=== PATIENT | female | born 1980 | race Caucasian/White ===

== ENCOUNTER 2020-12-31 21:40 | Emergency (ER) | payer MEDICAID | END 2020-12-31 22:12 | LOC: JD.ED 21:40 | DX: Z53.21 Procedure and treatment not carried out due to patient leaving prior to being seen by health care provider (principal) ==

== ENCOUNTER 2021-01-23 06:49 | Inpatient (IN) | payer MEDICAID ==
[2021-01-23] MEDS ORDERED: Nalbuphine 10 MG/1 ML Vial IVPUSH PRN (07:42)
[2021-01-23] MEDS ORDERED: Ondansetron 4 MG/2 ML SDV IVPUSH PRN ×2 (07:42→19:44)
[2021-01-23] MEDS ORDERED: Oxytocin/Lactated Ringers 10 UNIT/1,000 ML BAG IV SCH ×2 (07:45→19:15)
--- NOTE | 2021-01-23 07:46 | PCM.LDHP ---
L&D History of Present Illness - General Date of Service: 01/23/21 Admit Problem/Dx: Patient Status Order with Admit Dx/Problem 01/23/21 07:43 Patient Status [ADT] Routine Admission Diagnosis/Problem Admission Diagnosis/Problem Advanced maternal age Source of Information: Patient History Limitations: Reports: No Limitations - History of Present Illness Introduction:: Patient is a 41 y/o at 39 0/7 wks who was to present for IOL for AMA who also started cricket somewhat this AM. Doing well. 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 : 10 Para: 8 - Infectious Disease History Infectious Disease History: Reports: Chicken Pox - Past Surgical History Female Surgical History: Reports: Lithotripsy/ESWL Social & Family History - Family History Family Medical History: No Pertinent Family History - Tobacco Use Tobacco Use Status *Q: Never Tobacco User - Caffeine Use Caffeine Use: Reports: Tea - Alcohol Use Alcohol Use History: No - Recreational Drug Use Recreational Drug Use: No H&P Review of Systems - Review of Systems: Review Of Systems: See Below General: Reports: No Symptoms Pulmonary: Reports: No Symptoms Cardiovascular: Reports: No Symptoms Gastrointestinal: Reports: No Symptoms Genitourinary: Reports: No Symptoms Musculoskeletal: Reports: No Symptoms Psychiatric: Reports: No Symptoms L&D Exam - Exam Exam: See Below - Vital Signs Weight: 116.755 kg - OB Specific Contraction Intensity: Mild Movement: Active Heart Tones: Present Heart Tones per Min: 130 Heart Rate (FHR) Variability: Moderate (6-25 bpm) Presentation: Vertex - Hilliard Score Hilliard Score Cervix Position: Midposition Hilliard Score Consistency: Soft Hilliard Score Effacement: 51-70% Hilliard Score Dilation: 3-4 cm Hilliard Score 's Station: -3 Hilliard Score Total: 7 - Exam General: Alert, Oriented, Cooperative Lungs: Clear to Auscultation, Normal Respiratory Effort Cardiovascular: Regular Rate, Regular Rhythm GI/Abdominal Exam: Soft, Non-Tender Genitourinary: Normal external exam Extremities: Normal Inspection Skin: Warm, Dry, Intact - Patient Data Result Diagrams: 01/23/21 08:00 - Problem List (1) Advanced maternal age (AMA), 40 years or greater SNOMED Code(s): 506399491 ICD Code: [id number] - Status: Acute Current Visit: Yes (2) 39 weeks gestation of SNOMED Code(s): 14191746 ICD Code: Z3A.39 - 39 WEEKS GESTATION OF Status: Acute Current Visit: Yes Problem List Initiated/Reviewed/Updated: Yes Orders Last 24hrs: Active Orders 24 hr Category Date Time Status Patient Status [ADT] Routine ADT 01/23/21 07:43 Ordered Activity as Tolerated [RC] PFP Care 01/23/21 07:43 Ordered Communication Order [RC] ASDIRECTED Care 01/23/21 07:43 Ordered Communication Order [RC] ASDIRECTED Care 01/23/21 07:43 Ordered Communication Order [RC] ASDIRECTED Care 01/23/21 07:43 Ordered Heart Tones [RC] ASDIRECTED Care 01/23/21 07:43 Ordered Monitoring [RC] INTERMITTENT Care 01/23/21 07:43 Ordered Non Stress Test [RC] PER UNIT ROUTINE Care 01/23/21 07:43 Ordered Notify Provider [RC] ASDIRECTED Care 01/23/21 07:43 Ordered Notify Provider [RC] PRN Care 01/23/21 07:43 Ordered Peripheral IV Care [RC] . DIRECTED Care 01/23/21 07:43 Ordered Vaginal Exam [RC] ASDIRECTED Care 01/23/21 07:43 Ordered Vital Signs [RC] ASDIRECTED Care 01/23/21 07:43 Ordered Regular Diet [DIET] Diet 01/23/21 Breakfast Ordered CBC W/O DIFF,HEMOGRAM [HEME] Routine Lab 01/23/21 07:42 Ordered CORONAVIRUS COVID-19 PING [MOLEC] Stat Lab 01/23/21 07:44 Ordered RAPID PLASMA REAGIN,RPR [CHEM] Routine Lab 01/23/21 07:43 Ordered TYPE AND SCREEN [BBK] Routine Lab 01/23/21 07:42 Ordered Lactated Ringers [Ringers, Lactated] 1,000 ml Med 01/23/21 07:45 Ordered IV ASDIRECTED Nalbuphine [Nubain] Med 01/23/21 07:42 Ordered 10 mg IVPUSH Q2H PRN Ondansetron [Zofran] Med 01/23/21 07:42 Ordered 4 mg IVPUSH Q4H PRN Oxytocin/Lactated Ringers [Pitocin in LR 10 Units/1,000 Med 01/23/21 07:45 Ordered ML] 10 unit in 1,000 ml IV .CONTINUOUS Oxytocin/Lactated Ringers [Pitocin in LR 10 Units/1,000 Med 01/23/21 07:45 Ordered ML] 10 unit in 1,000 ml IV TITRATE Sodium Chloride 0.9% [Saline Flush] Med 01/23/21 09:00 Ordered 10 ml FLUSH 0900,2100 Electronic Heart Tones Ext w TOCO [WOMSER] Oth 01/23/21 07:43 Ordered Routine Electronic Heart Tones Internal [WOMSER] Per Unit Ot 01/23/21 07:43 Ordered Routine Peripheral IV Insertion Adult [OM.PC] Routine Oth 01/23/21 07:43 Ordered Resuscitation Status Routine Resus Stat 01/23/21 07:42 Ordered Assessment/Plan Comment:: * Labs * GBS negative * Patient prefers epidural * Will augment with pitocin / AROM once epidural in place * Anticipate
[2021-01-23] MEDS ORDERED: Bupivacaine 0.25% 10 ML SDV ONE (08:53)
[2021-01-23] MEDS ORDERED: diphenhydrAMINE 50 MG/ML SDV IVPUSH PRN (08:53)
[2021-01-23] MEDS ORDERED: Bupivacaine/fentaNYL/NS 100 ML Bag EPIDUR PRN (08:53)
[2021-01-23] MEDS ORDERED: fentaNYL 100 MCG/2 ML SDV EPIDUR PRN (08:53)
[2021-01-23] MEDS ORDERED: ePHEDrine 50 MG/ML SDV IVPUSH PRN (08:53)
[2021-01-23] MEDS ORDERED: Sodium Chloride 0.9% 10 ML Syringe FLUSH SCH (09:00)
[2021-01-23] MEDS: Lactated Ringers 1,000 ML IV SCH ×2 (09:31→10:09)
--- NOTE | 2021-01-23 09:49 | PCM.PREANE ---
Preanesthetic Assessment - Procedure Proposed Procedure: epidural - Anesthesia/Transfusion/Family Hx Anesthesia History: Prior Anesthesia Without Reaction Family History of Anesthesia Reaction: No Transfusion History: No Prior Transfusion(s) - Review of Systems General: Fatigue, Malaise Pulmonary: No Symptoms Cardiovascular: No Symptoms Gastrointestinal: Abdominal Pain (labor) Neurological: No Symptoms Other: Reports: None - Physical Assessment Height: 1.65 m Weight: 116.755 kg ASA Class: 3 Mental Status: Alert & Oriented x3 Airway Class: Mallampati = 3 Dentition: Reports: Normal Dentition Thyro-Mental Finger Breadths: 3 Mouth Opening Finger Breadths: 3 ROM/Head Extension: Full Lungs: Clear to Auscultation, Normal Respiratory Effort Cardiovascular: Regular Rate, Regular Rhythm - Lab Values: Laboratory Last Values WBC 9.22 K/mm3 (3.98-10.04) 01/23/21 08:00 RBC 3.89 M/mm3 (3.98-5.22) L 01/23/21 08:00 Hgb 12.4 gm/dl (11.2-15.7) 01/23/21 08:00 Hct 38.1 % (34.1-44.9) 01/23/21 08:00 MCV 97.9 fl (79.4-94.8) H 01/23/21 08:00 MCH 31.9 pg (25.6-32.2) 01/23/21 08:00 MCHC 32.5 g/dl (32.2-35.5) 01/23/21 08:00 RDW Std Deviation 50.5 fL (36.4-46.3) H 01/23/21 08:00 Plt Count 195 K/mm3 (182-369) 01/23/21 08:00 MPV 11.2 fl (9.4-12.3) 01/23/21 08:00 Blood Type O POSITIVE 01/23/21 08:00 Gel Antibody Screen Negative 01/23/21 08:00 - Allergies Allergies/Adverse Reactions: Allergies Allergy/AdvReac Type Severity Reaction Status Date / Time No Known Allergies Allergy Verified 01/23/21 07:27 - Anesthesia Plan Pre-Op Medication Ordered: None - Acknowledgements Anesthesia Type Planned: Epidural Pt an Appropriate Candidate for the Planned Anesthesia: Yes Alternatives and Risks of Anesthesia Discussed w Pt/Guardian: Yes Pt/Guardian Understands and Agrees with Anesthesia Plan: Yes PreAnesthesia Questionnaire Gastrointestinal History: Reports: GERD Genitourinary History: Reports: Renal Calculus 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: , 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 Other OB/BYN History: [id number] - Infectious Disease History Infectious Disease History: Reports: Chicken Pox - Past Surgical History Female Surgical History: Reports: Lithotripsy/ESWL - SUBSTANCE USE Tobacco Use Status *Q: Never Tobacco User Recreational Drug Use History: No - HOME MEDS Home Medications: Home Meds No122/Iron/Folic Acid [ Multi Tablet] 1 each PO DAILY 01/23/21 [History] - CURRENT (IN HOUSE) MEDS Current Meds: Current Medications Diphenhydramine HCl (Diphenhydramine 50 Mg/Ml Sdv) 25 mg IVPUSH Q6H PRN PRN Reason: pruritis Ephedrine Sulfate (Ephedrine 50 Mg/Ml Sdv) 5 mg IVPUSH ASDIRECTED PRN PRN Reason: Hypotension Fentanyl (Fentanyl 100 Mcg/2 Ml Sdv) 100 mcg EPIDUR Q3H PRN PRN Reason: Pain Last Admin: 01/23/21 09:30 Dose: 100 mcg Documented by: Fentanyl/Bupivacaine HCl (Bupivacaine/Fentanyl/Ns 100 Ml Bag) 100 ml EPIDUR ASDIRECTED PRN PRN Reason: Pain Last Admin: 01/23/21 09:31 Dose: 100 ml Documented by: Oxytocin/Lactated Ringer's (Pitocin In Lr 10 Units/1,000 Ml) 10 unit in 1,000 mls @ 12 mls/hr IV TITRATE MELISA; Protocol Oxytocin/Lactated Ringer's (Pitocin In Lr 10 Units/1,000 Ml) 10 unit in 1,000 mls @ 500 mls/hr IV .CONTINUOUS MELISA Lactated Ringer's (Ringers, Lactated) 1,000 mls @ 40 mls/hr IV ASDIRECTED MELISA Last Admin: 01/23/21 09:31 Dose: 40 mls/hr Documented by: Nalbuphine HCl (Nalbuphine 10 Mg/1 Ml Vial) 10 mg IVPUSH Q2H PRN PRN Reason: Pain Ondansetron HCl (Ondansetron 4 Mg/2 Ml Sdv) 4 mg IVPUSH Q4H PRN PRN Reason: Nausea/Vomiting Sodium Chloride (Sodium Chloride 0.9% 10 Ml Syringe) 10 ml FLUSH 0900,2100 MELISA
--- NOTE | 2021-01-23 12:24 | PCM.PNLD ---
Labor Progress Note - VS & Meds Vital Signs: Last Vital Signs Temp 36.9 C 01/23/21 07:43 Pulse 104 H 01/23/21 07:43 Resp 16 01/23/21 07:43 BP 135/81 01/23/21 07:43 Pulse Ox 100 01/23/21 07:43 Active Medications: Current Medications Diphenhydramine HCl (Diphenhydramine 50 Mg/Ml Sdv) 25 mg IVPUSH Q6H PRN PRN Reason: pruritis Ephedrine Sulfate (Ephedrine 50 Mg/Ml Sdv) 5 mg IVPUSH ASDIRECTED PRN PRN Reason: Hypotension Fentanyl (Fentanyl 100 Mcg/2 Ml Sdv) 100 mcg EPIDUR Q3H PRN PRN Reason: Pain Last Admin: 01/23/21 09:30 Dose: 100 mcg Documented by: Fentanyl/Bupivacaine HCl (Bupivacaine/Fentanyl/Ns 100 Ml Bag) 100 ml EPIDUR ASDIRECTED PRN PRN Reason: Pain Last Admin: 01/23/21 09:31 Dose: 100 ml Documented by: Oxytocin/Lactated Ringer's (Pitocin In Lr 10 Units/1,000 Ml) 10 unit in 1,000 mls @ 12 mls/hr IV TITRATE MELISA; Protocol Last Titration: 01/23/21 12:00 Dose: 8 munits/min, 48 mls/hr Documented by: Oxytocin/Lactated Ringer's (Pitocin In Lr 10 Units/1,000 Ml) 10 unit in 1,000 mls @ 500 mls/hr IV .CONTINUOUS MELISA Lactated Ringer's (Ringers, Lactated) 1,000 mls @ 40 mls/hr IV ASDIRECTED MELISA Last Admin: 01/23/21 10:09 Dose: 40 mls/hr Documented by: Nalbuphine HCl (Nalbuphine 10 Mg/1 Ml Vial) 10 mg IVPUSH Q2H PRN PRN Reason: Pain Ondansetron HCl (Ondansetron 4 Mg/2 Ml Sdv) 4 mg IVPUSH Q4H PRN PRN Reason: Nausea/Vomiting Sodium Chloride (Sodium Chloride 0.9% 10 Ml Syringe) 10 ml FLUSH 0900,2100 MELISA - Uterine Contractions Uterine Monitoring Mode: External [place] Contraction Intensity: Mild to Moderate - Monitoring Monitor Mode: External Ultrasound Heart Rate (FHR) Baseline: 130 Heart Rate (FHR) Variability: Moderate (6-25 bpm) Accelerations: Absent Decelerations: None Strip Review: Category I - Vaginal Exam Dilation (cm): 5-6 Effacement (Percent): 70 Station: -3 Cervical Position: Anterior - Labor Progress (Free Text) Labor Progress: Doing well. RN with some difficulty picking up contractions. IUPC placed. Continue pitocin per protocol. Anticipate
[2021-01-23] MEDS: Oxytocin/Lactated Ringers 10 UNIT/1,000 ML BAG IV SCH ×2 (15:53→19:12)
--- NOTE | 2021-01-23 16:09 | PCM.DEL ---
L & D Note - General Info Date of Service: 01/23/21 - Delivery Note Labor: Spontaneous Delivery Outcome: Livebirth Delivery Method: Spontaneous Vaginal Delivery-Single Delivery Mode: Spontaneous Presentation: Left Occiput Anterior (PARUL) Nuchal Cord: Present, Reduced Anesthesia Type: Epidural Amniotic Fluid Description: Clear Episiotomy Type: None Laceration: None Placenta: Intact, Spontaneous Cord: 3 Vessels Estimated Blood Loss: 100 Resuscitation Needed: Yes [place]: Bulb Syringe, Stimulated, Warmed, [place] Used Delivery Comments (Free Text/Narrative):: Patient found to be complete and began pushing. With maternal pushing effort head delivered from PARUL presentation. Nuchal present and reduced. With gentle downward traction shoulders and body delivered. placed on maternal abdomen. Cord clamped and cut. Cord blood obtained. Placenta allowed time to separate and expelled intact. Inspection of perineum with no lacerations - General Info Date of Service: 01/23/21 - Patient Data Vitals - Most Recent: Last Vital Signs Temp 36.9 C 01/23/21 07:43 Pulse 104 H 01/23/21 07:43 Resp 16 01/23/21 07:43 BP 135/81 01/23/21 07:43 Pulse Ox 100 01/23/21 07:43 Weight - Most Recent: 116.755 kg I&O - Last 24 Hours: Intake & Output 01/23/21 01/23/21 01/23/21 06:59 14:59 22:59 Output Total 350 Balance -350 - Exam Urinary Catheter Total Time: 0Days 4Hours - Problem List & Annotations (1) Advanced maternal age (AMA), 40 years or greater SNOMED Code(s): 658572645 Code(s): AIY9880 - Status: Acute Current Visit: Yes (2) 39 weeks gestation of SNOMED Code(s): 37642571 Code(s): Z3A.39 - 39 WEEKS GESTATION OF Status: Acute Current Visit: Yes (3) Vaginal delivery SNOMED Code(s): 690621585 Code(s): O80 - ENCOUNTER FOR FULL-TERM UNCOMPLICATED DELIVERY Status: Acute Current Visit: Yes - Problem List Review Problem List Initiated/Reviewed/Updated: Yes - My Orders Last 24 Hours: My Active Orders 01/23/21 Breakfast Regular Diet [DIET] 01/23/21 07:42 Nalbuphine [Nubain] 10 mg IVPUSH Q2H PRN Ondansetron [Zofran] 4 mg IVPUSH Q4H PRN Resuscitation Status Routine 01/23/21 07:43 Patient Status [ADT] Routine Activity as Tolerated [RC] PFP Communication Order [RC] ASDIRECTED Communication Order [RC] ASDIRECTED Communication Order [RC] ASDIRECTED Heart Tones [RC] ASDIRECTED Monitoring [RC] INTERMITTENT Non Stress Test [RC] PER UNIT ROUTINE Notify Provider [RC] ASDIRECTED Notify Provider [RC] PRN Peripheral IV Care [RC] . DIRECTED Vital Signs [RC] ASDIRECTED Electronic Heart Tones Ext w TOCO [WOMSER] Routine Electronic Heart Tones Internal [WOMSER] Per Unit Routine Peripheral IV Insertion Adult [OM.PC] Routine 01/23/21 07:45 Lactated Ringers [Ringers, Lactated] 1,000 ml IV ASDIRECTED Oxytocin/Lactated Ringers [Pitocin in LR 10 Units/1,000 ML] 10 unit in 1,000 ml IV .CONTINUOUS Oxytocin/Lactated Ringers [Pitocin in LR 10 Units/1,000 ML] 10 unit in 1,000 ml IV TITRATE 01/23/21 08:00 RAPID PLASMA REAGIN,RPR [CHEM] Routine 01/23/21 09:00 Sodium Chloride 0.9% [Saline Flush] 10 ml FLUSH 0900,2100 - Assessment Assessment:: PPD#0 - Plan Plan:: * Routine cares * Breast feeding * Discharge home in 1-2 days
[2021-01-23] MEDS ORDERED: Methylergonovine 0.2 MG/1 ML Amp ONE (16:14)
[2021-01-23] MEDS ORDERED: Methylergonovine 0.2 MG/1 ML Amp IM STA (16:18)
[2021-01-23] MEDS ORDERED: Docusate Sodium 100 MG Cap PO PRN (16:28)
[2021-01-23] MEDS ORDERED: Benzocaine/Menthol 20%-0.5% Spray 78 GM Cannister TOP PRN (16:28)
[2021-01-23] MEDS ORDERED: Acetaminophen/HYDROcodone 325-5 MG Tab PO PRN (16:28)
[2021-01-23] MEDS ORDERED: Acetaminophen 325 MG Tab PO PRN (16:28)
[2021-01-23] MEDS ORDERED: Witch Hazel Medicated Pads 40/Jar TOP PRN (16:28)
[2021-01-23] MEDS ORDERED: Carboprost Tromethamine 250 MCG/1 ML Amp IM ONE (17:05)
[2021-01-23] MEDS ORDERED: Carboprost Tromethamine 250 MCG/1 ML Amp ONE (17:06)
[2021-01-23] MEDS ORDERED: Misoprostol 200 MCG Tab ONE (18:33)
[2021-01-23] MEDS ORDERED: Misoprostol 200 MCG Tab PO STA (18:37)
[2021-01-23] MEDS ORDERED: ceFAZolin 2 GM in Premix Bag 1 BAG IV ONE (18:37)
--- NOTE | 2021-01-23 18:44 | PCM.SN.2 ---
- Free Text/Narrative Note: 1843 Patient with EBL of 100 cc at delivery. Within first 10 minutes called back for increase in bleeding. Sweep of SHEREE done and patient given 0.2 mg of Methergine. Patient did well, however, called by RN around 1720 with small gushes of blood with each fundal check. Asked to give 250 mcg of hemabate. Presented around 183 to check on patient and RN noted again continued small gushes / flow that are adding up. Bed broken down and evaluation showed clot within uterus. Removed manually. Total of 250 clot removed. Bladder emptied via straight cath. Given 600 mcg of Cytotec and also Tranexamic acid. Given 2 grams ancef for manual exploration. Total EBL just under 1L by this time. Doing well now currently. Will plan scheduled Methergine q 4hours overnight x additional doses. CBC in AM. Kalee Mccrary MD
[2021-01-23] MEDS: Ibuprofen 600 MG Tab PO PRN (18:56)
[2021-01-23] MEDS ORDERED: Morphine 2 MG/ML SYRINGE IVPUSH PRN (19:45)
[2021-01-23] MEDS: Methylergonovine 0.2 MG/1 ML Amp IM SCH (20:04)
[2021-01-23] MEDS: Acetaminophen/HYDROcodone 325-5 MG Tab PO PRN (21:27)
[2021-01-24] MEDS: Ibuprofen 600 MG Tab PO PRN ×2 (00:17→07:53)
[2021-01-24] MEDS: Methylergonovine 0.2 MG/1 ML Amp IM SCH ×2 (00:18→04:29)
[2021-01-24] MEDS: Acetaminophen/HYDROcodone 325-5 MG Tab PO PRN ×2 (03:35→09:00)
--- NOTE | 2021-01-24 04:53 | PCM.PNPP ---
- General Info Date of Service: 01/24/21 Functional Status: Reports: Pain Controlled, Tolerating Diet, Ambulating, Urinating - Review of Systems General: Reports: No Symptoms Pulmonary: Reports: No Symptoms Cardiovascular: Reports: No Symptoms Gastrointestinal: Reports: Abdominal Pain Genitourinary: Reports: No Symptoms Musculoskeletal: Reports: No Symptoms Neurological: Reports: No Symptoms - General Info Date of Service: 01/24/21 - Patient Data Vital Signs - Most Recent: Last Vital Signs Temp 36.9 C 01/24/21 00:05 Pulse 91 01/24/21 00:05 Resp 14 01/24/21 00:05 BP 96/74 01/24/21 00:05 Pulse Ox 95 01/24/21 00:05 Weight - Most Recent: 116.755 kg I&O - Last 24 Hours: Intake & Output 01/23/21 01/23/21 01/24/21 14:59 22:59 06:59 Intake Total 2550 2600 Output Total 1136 350 Balance 1414 -350 2600 Lab Results - Last 24 Hours: Laboratory Results - last 24 hr 01/23/21 01/23/21 01/23/21 Range/Units 08:00 08:00 08:00 WBC 9.22 (3.98-10.04) K/mm3 RBC 3.89 L (3.98-5.22) M/mm3 Hgb 12.4 (11.2-15.7) gm/dl Hct 38.1 (34.1-44.9) % MCV 97.9 H (79.4-94.8) fl MCH 31.9 (25.6-32.2) pg MCHC 32.5 (32.2-35.5) g/dl RDW Std Deviation 50.5 H (36.4-46.3) fL Plt Count 195 (182-369) K/mm3 MPV 11.2 (9.4-12.3) fl PT (9.7-12.0) SECONDS INR APTT (21.7-31.4) SECONDS Fibrinogen (187-446) mg/dL RPR Non-reactive (NONREACTIVE) SARS-CoV-2 RNA (PING) (NEGATIVE) Blood Type O POSITIVE Gel Antibody Screen Negative 01/23/21 01/23/21 01/23/21 Range/Units 09:00 19:50 19:50 WBC 20.26 H (3.98-10.04) K/mm3 RBC 4.46 (3.98-5.22) M/mm3 Hgb 14.1 D (11.2-15.7) gm/dl Hct 43.9 (34.1-44.9) % MCV 98.4 H (79.4-94.8) fl MCH 31.6 (25.6-32.2) pg MCHC 32.1 L (32.2-35.5) g/dl RDW Std Deviation 52.4 H (36.4-46.3) fL Plt Count 206 (182-369) K/mm3 MPV 11.0 (9.4-12.3) fl PT 9.4 L (9.7-12.0) SECONDS INR < 0.93 APTT 26.5 (21.7-31.4) SECONDS Fibrinogen 427 (187-446) mg/dL RPR (NONREACTIVE) SARS-CoV-2 RNA (PING) Negative (NEGATIVE) Blood Type Gel Antibody Screen Med Orders - Current: Current Medications Acetaminophen (Acetaminophen 325 Mg Tab) 650 mg PO Q4H PRN PRN Reason: mild pain or fever Hydrocodone Bitart/Acetaminophen (Acetaminophen/Hydrocodone 325-5 Mg Tab) 1 - 2 tab PO Q4H PRN PRN Reason: Pain Last Admin: 01/24/21 03:35 Dose: 2 tab Documented by: Benzocaine/Menthol (Benzocaine/Menthol 20%-0.5% [place] 78 Gm Cannister) 0 gm TOP ASDIRECTED PRN PRN Reason: Perineal Comfort Measure Docusate Sodium (Docusate Sodium 100 Mg Cap) 100 mg PO BID PRN PRN Reason: Constipation Oxytocin/Lactated Ringer's (Pitocin In Lr 10 Units/1,000 Ml) 10 unit in 1,000 mls @ 500 mls/hr IV TITRATE MELISA; Protocol Ibuprofen (Ibuprofen 600 Mg Tab) 600 mg PO Q6H PRN PRN Reason: Mild pain or fever Last Admin: 01/24/21 00:17 Dose: 600 mg Documented by: Morphine Sulfate (Morphine 2 Mg/Ml Syringe) 2 mg IVPUSH Q4H PRN PRN Reason: Abdominal Pain Last Admin: 01/23/21 20:32 Dose: 2 mg Documented by: Ondansetron HCl (Ondansetron 4 Mg/2 Ml Sdv) 4 mg IVPUSH Q8H PRN PRN Reason: Nausea Last Admin: 01/23/21 20:16 Dose: 4 mg Documented by: Jodi Mehta (Jodi Mehta Medicated Pads 40/Jar) 1 pad TOP ASDIRECTED PRN PRN Reason: Perineal Comfort Measure Discontinued Medications Hydrocodone Bitart/Acetaminophen (Acetaminophen/Hydrocodone 325-5 Mg Tab) 1 tab PO Q4H PRN PRN Reason: Pain Last Admin: 01/23/21 18:56 Dose: 1 tab Documented by: Carboprost Tromethamine (Carboprost Tromethamine 250 Mcg/1 Ml Amp) 250 mcg IM ONETIME ONE Stop: 01/23/21 17:06 Last Admin: 01/23/21 17:12 Dose: 250 mcg Documented by: Carboprost Tromethamine (Carboprost Tromethamine 250 Mcg/1 Ml Amp) Confirm Administered Dose 250 mcg .ROUTE .STK-MED ONE Stop: 01/23/21 17:07 Last Admin: 01/23/21 18:40 Dose: Not Given Documented by: Diphenhydramine HCl (Diphenhydramine 50 Mg/Ml Sdv) 25 mg IVPUSH Q6H PRN PRN Reason: pruritis Ephedrine Sulfate (Ephedrine 50 Mg/Ml Sdv) 5 mg IVPUSH ASDIRECTED PRN PRN Reason: Hypotension Fentanyl (Fentanyl 100 Mcg/2 Ml Sdv) 100 mcg EPIDUR Q3H PRN PRN Reason: Pain Last Admin: 01/23/21 09:30 Dose: 100 mcg Documented by: Fentanyl/Bupivacaine HCl (Bupivacaine/Fentanyl/Ns 100 Ml Bag) 100 ml EPIDUR ASDIRECTED PRN PRN Reason: Pain Last Admin: 01/23/21 09:31 Dose: 100 ml Documented by: Oxytocin/Lactated Ringer's (Pitocin In Lr 10 Units/1,000 Ml) 10 unit in 1,000 mls @ 12 mls/hr IV TITRATE MELISA; Protocol Last Titration: 01/23/21 14:23 Dose: 16 munits/min, 96 mls/hr Documented by: Oxytocin/Lactated Ringer's (Pitocin In Lr 10 Units/1,000 Ml) 10 unit in 1,000 mls @ 500 mls/hr IV .CONTINUOUS MELISA Last Admin: 01/23/21 19:12 Dose: 999 mls/hr Documented by: Lactated Ringer's (Ringers, Lactated) 1,000 mls @ 40 mls/hr IV ASDIRECTED [facility] Last Admin: 01/23/21 10:09 Dose: 40 mls/hr Documented by: Cefazolin Sodium/Dextrose 2 gm (/ Premix) 50 mls @ 100 mls/hr IV ONETIME ONE Stop: 01/23/21 19:06 Last Admin: 01/23/21 19:05 Dose: 100 mls/hr Documented by: Methylergonovine Maleate (Methylergonovine 0.2 Mg/1 Ml Amp) Confirm Administered Dose 0.2 mg .ROUTE .STK-MED ONE Stop: 01/23/21 16:15 Last Admin: 01/23/21 18:40 Dose: Not Given Documented by: Methylergonovine Maleate (Methylergonovine 0.2 Mg/1 Ml Amp) 0.2 mg IM NOW STA Stop: 01/23/21 16:19 Last Admin: 01/23/21 16:20 Dose: 0.2 mg Documented by: Methylergonovine Maleate (Methylergonovine 0.2 Mg/1 Ml Amp) 0.2 mg IM Q4H MELISA Stop: 01/24/21 04:01 Last Admin: 01/24/21 04:29 Dose: 0.2 mg Documented by: Misoprostol (Misoprostol 200 Mcg Tab) Confirm Administered Dose 600 mcg .ROUTE .STK-MED ONE Stop: 01/23/21 18:34 Last Admin: 01/23/21 18:37 Dose: 600 mcg Documented by: Misoprostol (Misoprostol 200 Mcg Tab) 600 mcg PO NOW STA Stop: 01/23/21 18:38 Last Admin: 01/23/21 19:56 Dose: Not Given Documented by: Nalbuphine HCl (Nalbuphine 10 Mg/1 Ml Vial) 10 mg IVPUSH Q2H PRN PRN Reason: Pain Ondansetron HCl (Ondansetron 4 Mg/2 Ml Sdv) 4 mg IVPUSH Q4H PRN PRN Reason: Nausea/Vomiting Sodium Chloride (Sodium Chloride 0.9% 10 Ml Syringe) 10 ml FLUSH 0900,2100 [facility] Tranexamic Acid (Tranexamic Acid 1,000 Mg/10 Ml Amp) Confirm Administered Dose 1,000 mg .ROUTE .STK-MED ONE Stop: 01/23/21 18:34 Last Admin: 01/23/21 18:37 Dose: 1,000 mg Documented by: Tranexamic Acid (Tranexamic Acid 1,000 Mg/10 Ml Amp) 1,000 mg IVPUSH ONETIME ONE Stop: 01/23/21 18:38 Last Admin: 01/23/21 19:56 Dose: Not Given Documented by: - Interaction Infant Disposition, : [place] in Room with Family Infant Interaction: Holding Infant Feeding: Attempted ; Nursed Fair/Poor Support Person: - Recovery Exam Fundal Tone: Firm Fundal Level: 2 Fingerbreadths Below Umbilicus Fundal Placement: Midline Lochia Amount: Small Lochia Color: Rubra/Red Perineum Description: Intact, Minimal Bruising/Swelling Episiotomy/Laceration: None Bladder Status: Nonpalpable, Voiding Urinary Elimination: Voided - Exam General: Alert, Oriented, Cooperative GI/Abdominal Exam: Soft, Non-Tender - Problem List & Annotations (1) Advanced maternal age (AMA), 40 years or greater SNOMED Code(s): 297981456 Code(s): VSN0742 - Status: Acute Current Visit: Yes (2) 39 weeks gestation of SNOMED Code(s): 68462910 Code(s): Z3A.39 - 39 WEEKS GESTATION OF Status: Acute Current Visit: Yes (3) Vaginal delivery SNOMED Code(s): 690691768 Code(s): O80 - ENCOUNTER FOR FULL-TERM UNCOMPLICATED DELIVERY Status: Acute Current Visit: Yes (4) hemorrhage SNOMED Code(s): 12122487 Code(s): O72.1 - OTHER IMMEDIATE HEMORRHAGE Status: Acute Current Visit: Yes Qualifiers: hemorrhage type: unspecified Qualified Code(s): O72.1 - Other immediate hemorrhage - Problem List Review Problem List Initiated/Reviewed/Updated: Yes - My Orders Last 24 Hours: My Active Orders 01/23/21 07:42 Resuscitation Status Routine 01/23/21 16:28 Acetaminophen [TylenoL] 650 mg PO Q4H PRN Benzocaine/Menthol [Dermoplast Pain Relief 20%-0.5% [place]] See Dose Instructions TOP ASDIRECTED PRN Docusate Sodium [Colace] 100 mg PO BID PRN Ibuprofen [Motrin] 600 mg PO Q6H PRN witch Contreras [Tucks] 1 pad TOP ASDIRECTED PRN Heat Therapy [OM.PC] PRN 01/23/21 16:28 Activity as Tolerated [RC] PER UNIT ROUTINE Vital Signs [RC] 09,15,21,03 Assess Lochia [WOMSER] Per Unit Routine Assess Uterine Involution [WOMSER] Per Unit Routine Breast Pump [WOMSER] Per Unit Routine Ice Therapy [OM.PC] Per Unit Routine Perineal Care [OM.PC] Per Unit Routine Peripheral IV Discontinue [OM.PC] Routine Sitz Bath [OM.PC] Per Unit Routine 01/23/21 Dinner Regular Diet [DIET] 01/23/21 19:15 Oxytocin/Lactated Ringers [Pitocin in LR 10 Units/1,000 ML] 10 unit in 1,000 ml IV TITRATE 01/23/21 19:17 Acetaminophen/HYDROcodone [[place] 325-5 MG] 1 - 2 tab PO Q4H PRN 01/23/21 19:44 Ondansetron [Zofran] 4 mg IVPUSH Q8H PRN 01/23/21 19:45 Morphine 2 mg IVPUSH Q4H PRN 01/24/21 05:11 CBC W/O DIFF,HEMOGRAM [HEME] AM 01/24/21 16:28 Heat Therapy [OM.PC] PRN - Assessment Assessment:: PPD#1 - Plan Plan:: * Routine cares * Breast feeding * Patient has done well overnight in terms of bleeding. Last dose of Methergine at 0400. CBC due this AM. * Pain managed with Lortab * If continues to do well can be discharged later this PM
--- NOTE | 2021-01-24 09:25 | PCM.DCSUM1 ---
Discharge Summary - Discharge Data Discharge Date: 01/24/21 Discharge Disposition: Home, Self-Care 01 Condition: Good - Referral to Home Health Primary Care Physician: PCP None - Discharge Diagnosis/Problem(s) (1) Advanced maternal age (AMA), 40 years or greater SNOMED Code(s): 799602055 ICD Code: [id number] - Status: Acute Current Visit: Yes (2) 39 weeks gestation of SNOMED Code(s): 43906682 ICD Code: Z3A.39 - 39 WEEKS GESTATION OF Status: Acute Current Visit: Yes (3) Vaginal delivery SNOMED Code(s): 719712366 ICD Code: O80 - ENCOUNTER FOR FULL-TERM UNCOMPLICATED DELIVERY Status: Acute Current Visit: Yes (4) hemorrhage SNOMED Code(s): 50854415 ICD Code: O72.1 - OTHER IMMEDIATE HEMORRHAGE Status: Acute Current Visit: Yes Qualifiers: hemorrhage type: unspecified Qualified Code(s): O72.1 - Other immediate hemorrhage - Patient Summary/Data Complications: None Consults: None Recommended Follow-up Testing/Procedures: Follow up in 3 weeks for check Hospital Course: 41 y/o at 39 0/7 wks presented for IOL for AMA. Done with pitocin and AROM. Progressed well. Underwent that was uncomplicated. After delivery had bleeding which slowly added up to about 1L. This was managed with methergine, hemabate, cytotec, tranexamic acid. Did eventually slow and was controlled with then scheduled methergine for first 12 hours after delivery. Otherwise did well. Did desire discharge home on PPD#1 and was felt to be stable and so done - Patient Instructions Diet: Regular Diet as Tolerated Activity: As Tolerated Activity, Other: Pelvic rest for 6 weeks Driving: May Drive Today Showering/Bathing: May Shower Showering/Bathing, Other: May Bathe Notify Provider of: Fever, Increased Pain, Swelling and Redness, Drainage, Nausea and/or Vomiting - Discharge Plan *PRESCRIPTION DRUG MONITORING PROGRAM REVIEWED*: No *COPY OF PRESCRIPTION DRUG MONITORING REPORT IN PATIENT KATHRIN: No Home Medications: Home Meds No122/Iron/Folic Acid [ Multi Tablet] 1 each PO DAILY 01/23/21 [History] Acetaminophen [Tylenol] 650 mg PO Q4H PRN tablet 01/24/21 [Rx] Docusate Sodium [Colace] 100 mg PO BID PRN cap 01/24/21 [Rx] Ibuprofen [Motrin] 600 mg PO Q6H PRN tablet 01/24/21 [Rx] Referrals: Kalee Mccrary MD [Physician] - (3 weeks for check ) - Discharge Summary/Plan Comment DC Time >30 min.: No Total # of Minutes for Discharge Time: 15 - Patient Data Vitals - Most Recent: Last Vital Signs Temp 36.1 C 01/24/21 05:04 Pulse 94 01/24/21 05:04 Resp 14 01/24/21 05:04 BP 109/70 01/24/21 05:04 Pulse Ox 94 L 01/24/21 05:04 Weight - Most Recent: 116.755 kg I&O - Last 24 hours: Intake & Output 01/23/21 01/24/21 01/24/21 22:59 06:59 14:59 Intake Total 2600 Output Total 350 Balance -350 2600 Lab Results - Last 24 hrs: Laboratory Results - last 24 hr 01/23/21 01/23/21 01/23/21 Range/Units 08:00 09:00 19:50 WBC 20.26 H (3.98-10.04) K/mm3 RBC 4.46 (3.98-5.22) M/mm3 Hgb 14.1 D (11.2-15.7) gm/dl Hct 43.9 (34.1-44.9) % MCV 98.4 H (79.4-94.8) fl MCH 31.6 (25.6-32.2) pg MCHC 32.1 L (32.2-35.5) g/dl RDW Std Deviation 52.4 H (36.4-46.3) fL Plt Count 206 (182-369) K/mm3 MPV 11.0 (9.4-12.3) fl PT (9.7-12.0) SECONDS INR APTT (21.7-31.4) SECONDS Fibrinogen (187-446) mg/dL RPR Non-reactive (NONREACTIVE) SARS-CoV-2 RNA (PING) Negative (NEGATIVE) 01/23/21 01/24/21 Range/Units 19:50 05:13 WBC 11.96 H (3.98-10.04) K/mm3 RBC 3.47 L (3.98-5.22) M/mm3 Hgb 11.0 L D (11.2-15.7) gm/dl Hct 33.6 L (34.1-44.9) % MCV 96.8 H (79.4-94.8) fl MCH 31.7 (25.6-32.2) pg MCHC 32.7 (32.2-35.5) g/dl RDW Std Deviation 48.8 H (36.4-46.3) fL Plt Count 167 L (182-369) K/mm3 MPV 11.2 (9.4-12.3) fl PT 9.4 L (9.7-12.0) SECONDS INR < 0.93 APTT 26.5 (21.7-31.4) SECONDS Fibrinogen 427 (187-446) mg/dL RPR (NONREACTIVE) SARS-CoV-2 RNA (PING) (NEGATIVE) Med Orders - Current: Current Medications Acetaminophen (Acetaminophen 325 Mg Tab) 650 mg PO Q4H PRN PRN Reason: mild pain or fever Hydrocodone Bitart/Acetaminophen (Acetaminophen/Hydrocodone 325-5 Mg Tab) 1 - 2 tab PO Q4H PRN PRN Reason: Pain Last Admin: 01/24/21 09:00 Dose: 2 tab Documented by: Benzocaine/Menthol (Benzocaine/Menthol 20%-0.5% [place] 78 Gm Cannister) 0 gm TOP ASDIRECTED PRN PRN Reason: Perineal Comfort Measure Docusate Sodium (Docusate Sodium 100 Mg Cap) 100 mg PO BID PRN PRN Reason: Constipation Last Admin: 01/24/21 07:53 Dose: 100 mg Documented by: Oxytocin/Lactated Ringer's (Pitocin In Lr 10 Units/1,000 Ml) 10 unit in 1,000 mls @ 500 mls/hr IV TITRATE MELISA; Protocol Ibuprofen (Ibuprofen 600 Mg Tab) 600 mg PO Q6H PRN PRN Reason: Mild pain or fever Last Admin: 01/24/21 07:53 Dose: 600 mg Documented by: Morphine Sulfate (Morphine 2 Mg/Ml Syringe) 2 mg IVPUSH Q4H PRN PRN Reason: Abdominal Pain Last Admin: 01/23/21 20:32 Dose: 2 mg Documented by: Ondansetron HCl (Ondansetron 4 Mg/2 Ml Sdv) 4 mg IVPUSH Q8H PRN PRN Reason: Nausea Last Admin: 01/23/21 20:16 Dose: 4 mg Documented by: Jodi Mehta (Jodi Mehta Medicated Pads 40/Jar) 1 pad TOP ASDIRECTED PRN PRN Reason: Perineal Comfort Measure Discontinued Medications Hydrocodone Bitart/Acetaminophen (Acetaminophen/Hydrocodone 325-5 Mg Tab) 1 tab PO Q4H PRN PRN Reason: Pain Last Admin: 01/23/21 18:56 Dose: 1 tab Documented by: Carboprost Tromethamine (Carboprost Tromethamine 250 Mcg/1 Ml Amp) 250 mcg IM ONETIME ONE Stop: 01/23/21 17:06 Last Admin: 01/23/21 17:12 Dose: 250 mcg Documented by: Carboprost Tromethamine (Carboprost Tromethamine 250 Mcg/1 Ml Amp) Confirm Administered Dose 250 mcg .ROUTE .STK-MED ONE Stop: 01/23/21 17:07 Last Admin: 01/23/21 18:40 Dose: Not Given Documented by: Diphenhydramine HCl (Diphenhydramine 50 Mg/Ml Sdv) 25 mg IVPUSH Q6H PRN PRN Reason: pruritis Ephedrine Sulfate (Ephedrine 50 Mg/Ml Sdv) 5 mg IVPUSH ASDIRECTED PRN PRN Reason: Hypotension Fentanyl (Fentanyl 100 Mcg/2 Ml Sdv) 100 mcg EPIDUR Q3H PRN PRN Reason: Pain Last Admin: 01/23/21 09:30 Dose: 100 mcg Documented by: Fentanyl/Bupivacaine HCl (Bupivacaine/Fentanyl/Ns 100 Ml Bag) 100 ml EPIDUR ASDIRECTED PRN PRN Reason: Pain Last Admin: 01/23/21 09:31 Dose: 100 ml Documented by: Oxytocin/Lactated Ringer's (Pitocin In Lr 10 Units/1,000 Ml) 10 unit in 1,000 mls @ 12 mls/hr IV TITRATE MELISA; Protocol Last Titration: 01/23/21 14:23 Dose: 16 munits/min, 96 mls/hr Documented by: Oxytocin/Lactated Ringer's (Pitocin In Lr 10 Units/1,000 Ml) 10 unit in 1,000 mls @ 500 mls/hr IV .CONTINUOUS MELISA Last Admin: 01/23/21 19:12 Dose: 999 mls/hr Documented by: Lactated Ringer's (Ringers, Lactated) 1,000 mls @ 40 mls/hr IV ASDIRECTED [facility] Last Admin: 01/23/21 10:09 Dose: 40 mls/hr Documented by: Cefazolin Sodium/Dextrose 2 gm (/ Premix) 50 mls @ 100 mls/hr IV ONETIME ONE Stop: 01/23/21 19:06 Last Admin: 01/23/21 19:05 Dose: 100 mls/hr Documented by: Methylergonovine Maleate (Methylergonovine 0.2 Mg/1 Ml Amp) Confirm Administered Dose 0.2 mg .ROUTE .STK-MED ONE Stop: 01/23/21 16:15 Last Admin: 01/23/21 18:40 Dose: Not Given Documented by: Methylergonovine Maleate (Methylergonovine 0.2 Mg/1 Ml Amp) 0.2 mg IM NOW STA Stop: 01/23/21 16:19 Last Admin: 01/23/21 16:20 Dose: 0.2 mg Documented by: Methylergonovine Maleate (Methylergonovine 0.2 Mg/1 Ml Amp) 0.2 mg IM Q4H MELISA Stop: 01/24/21 04:01 Last Admin: 01/24/21 04:29 Dose: 0.2 mg Documented by: Misoprostol (Misoprostol 200 Mcg Tab) Confirm Administered Dose 600 mcg .ROUTE .STK-MED ONE Stop: 01/23/21 18:34 Last Admin: 01/23/21 18:37 Dose: 600 mcg Documented by: Misoprostol (Misoprostol 200 Mcg Tab) 600 mcg PO NOW STA Stop: 01/23/21 18:38 Last Admin: 01/23/21 19:56 Dose: Not Given Documented by: Nalbuphine HCl (Nalbuphine 10 Mg/1 Ml Vial) 10 mg IVPUSH Q2H PRN PRN Reason: Pain Ondansetron HCl (Ondansetron 4 Mg/2 Ml Sdv) 4 mg IVPUSH Q4H PRN PRN Reason: Nausea/Vomiting Sodium Chloride (Sodium Chloride 0.9% 10 Ml Syringe) 10 ml FLUSH 0900,2100 [facility] Tranexamic Acid (Tranexamic Acid 1,000 Mg/10 Ml Amp) Confirm Administered Dose 1,000 mg .ROUTE .STK-MED ONE Stop: 01/23/21 18:34 Last Admin: 01/23/21 18:37 Dose: 1,000 mg Documented by: Tranexamic Acid (Tranexamic Acid 1,000 Mg/10 Ml Amp) 1,000 mg IVPUSH ONETIME ONE Stop: 01/23/21 18:38 Last Admin: 01/23/21 19:56 Dose: Not Given Documented by:
--- NOTE | 2021-01-24 14:26 | PCM48HPAN ---
Post Anesthesia Note - EVALUATION WITHIN 48HRS OF ANESTHETIC Vital Signs in Normal Range: Yes Patient Participated in Evaluation: Yes Respiratory Function Stable: Yes Airway Patent: Yes Cardiovascular Function Stable: Yes Hydration Status Stable: Yes Pain Control Satisfactory: Yes Nausea and Vomiting Control Satisfactory: Yes Mental Status Recovered: Yes Vital Signs: Last Vital Signs Temp 98.2 F 01/24/21 07:58 Pulse 74 01/24/21 07:58 Resp 15 01/24/21 07:58 BP 94/61 01/24/21 07:58 Pulse Ox 93 L 01/24/21 07:58 - COMMENTS/OBSERVATIONS Free Text/Narrative:: No apparent anesthesia complications noted
== END 2021-01-24 13:35 | disposition home or self-care (01) | DRG 806 ==
LOC: JD.OBCHECK 06:49 → JD.OB 06:55 → OBSVTOIN 15:53 → JD.OB 15:54
PROVIDERS: ADMIT Obstetrics & Gynecology; ATTEND Obstetrics & Gynecology
PROC: 10E0XZZ Delivery of Products of Conception, External Approach (ICD-10-PCS; principal; 2021-01-23)
PROC: 10907ZC Drainage of Amniotic Fluid, Therapeutic from Products of Conception, Via Natural or Artificial Opening (ICD-10-PCS; 2021-01-23)
PROC: 3E0R3BZ Introduction of Anesthetic Agent into Spinal Canal, Percutaneous Approach (ICD-10-PCS; 2021-01-23)
PROC: 10H07YZ Insertion of Other Device into Products of Conception, Via Natural or Artificial Opening (ICD-10-PCS; 2021-01-23)
DX: O69.81X0 Labor and delivery complicated by cord around neck, without compression, not applicable or unspecified (principal); O72.1 Other immediate postpartum hemorrhage; Z37.0 Single live birth; Z3A.39 39 weeks gestation of pregnancy; Z20.822 Contact with and (suspected) exposure to COVID-19
CPT/HCPCS: 36415; 51701; 51702; 59025; 59409; 85027; 85384; 85610; 85730; 86592; 86850; 86900; 86901; A9270-GY; J0690; J2210; J2270; J2405; J2590; J3010; J3490; J7120; U0002

== ENCOUNTER 2022-05-08 10:20 | Emergency (ER) | payer MEDICAID | END 2022-05-08 11:30 | disposition home or self-care (01) | LOC: JD.ED 10:20 | DX: K08.89 Other specified disorders of teeth and supporting structures (principal) | CPT/HCPCS: 99282 ==